=== PATIENT | female | born 1980 | race Caucasian/White ===

== ENCOUNTER 2023-03-02 18:47 | Emergency (ER) | payer OTHER ==
[~2023-03-02] VITALS: Ht 160 cm; Wt 72.6 kg
[2023-03-02 18:55] VITALS: BP 144/87
[2023-03-02] MEDS ORDERED: OCUFLOX510 BOTHEYES (21:19)
== END 2023-03-02 21:28 | disposition home or self-care (01) ==
LOC: ER 18:47
DX: S05.01XA Injury of conjunctiva and corneal abrasion without foreign body, right eye, initial encounter (principal); W22.8XXA Striking against or struck by other objects, initial encounter
CPT/HCPCS: A9270

== ENCOUNTER → 2025-04-20 | Outpatient (CLI) | payer OTHER ==
[~2025-04-20] MED LIST: OCUFLOX510 BOTHEYES
[2025-04-30 08:51] LABS: HPVG SOURCE Cervical
== END | disposition home or self-care (01) ==
LOC: LAB SHORT 16:02 → LAB 16:02
PROVIDERS: Obstetrics & Gynecology
DX: R87.610 Atypical squamous cells of undetermined significance on cytologic smear of cervix (ASC-US) (principal); R87.810 Cervical high risk human papillomavirus (HPV) DNA test positive
CPT/HCPCS: 87624; 87625; 88142

== ENCOUNTER → 2025-06-22 | Outpatient (CLI) | payer OTHER | LOC: PLD 11:20 → LAB SHORT 11:20 | DX: R87.810 Cervical high risk human papillomavirus (HPV) DNA test positive (principal) | CPT/HCPCS: 88305 ==